=== PATIENT | male | born 1935 | race Caucasian/White ===

== ENCOUNTER → 2019-08-08 | Outpatient (CLI) | payer MEDICARE ==
[~2019-08-08] MED LIST: ACET1TAB12 PO; ASPI-1005 PO; ATOR10 PO; FURO20TA6 PO; LISI2.5T2 PO; METO25 PO; METO50 PO; RIVA20TA PO
== END | disposition home or self-care (01) ==
LOC: RAH 11:43
PROVIDERS: ATTEND Physical Medicine & Rehabilitation
DX: M19.032 Primary osteoarthritis, left wrist (principal); M47.812 Spondylosis without myelopathy or radiculopathy, cervical region; M47.816 Spondylosis without myelopathy or radiculopathy, lumbar region; M48.02 Spinal stenosis, cervical region; M48.061 Spinal stenosis, lumbar region without neurogenic claudication
CPT/HCPCS: 72040; 72100; 73100